=== PATIENT | female | born 1995 | race Caucasian/White ===

== ENCOUNTER → 2024-09-26 | Outpatient (CLI) | payer OTHER ==
--- NOTE | 2024-09-30 17:29 | HMCSR ---
APPROVED REPORT EXAM: Two-dimensional and M-mode echocardiogram with Doppler and color Doppler. INDICATION ICD: R07.9 Chest pain 2D Dimensions RVDd3.7 cmLVEF(%)66.5 (>50%)LVED Vol(simp.)76.1 mL IVSd0.7 (0.7-1.1cm)FS(%)36 %LVES Vol(simp.)30.3 mL LVDd4.1 (3.8-5.6cm)LA (2D)3.0 (1.6-4.0cm)LVEF(%, simp.)60 % PWd0.7 (0.7-1.1cm)Ao Root(2D)2.6 (2.0-3.7cm) IVSs1.0 cmLVOT diam1.9 (1.8-2.4cm) LVDs2.6 (2.5-4.0cm)IVC diam2.2 cm PWs1.1 cm M-Mode Dimensions EPSS0.4 cm LA (MM)3.4 (1.6-4.0cm) Ao Root(MM)2.6 (2.0-3.7cm) Aortic Valve AoV Vmax1.3 m/Demario Peak GR6.5 mmHgLVOT Vmax1.1 m/s AoV VTI0.2 mAo Mean GR3.8 mmHgLVOT VTI0.22 m NAVIN (VMAX)2.5 cm2AVA (VTI) 2.5 cm2 Mitral Valve MV E Vmax77.4 cm/sDECEL Time78 ms MV A Vmax67.7 cm/sP 1/2 T58 ms E/A ratio1.1MVA (PHT)3.8 cm2 TDI E/E' Medial7.0E/E' Lateral4.3 Medial E' Peak V11.00 cm/sLateral E' Peak V18.00 cm/s Pulmonary Valve PV Vmax0.9 m/s Tricuspid Valve TR Vmax2.0 m/sRAP (EST) 8 [id number] mmHg TR Peak GR15.7 mmHg Left Ventricle The left ventricle is normal size. There is normal LV segmental wall motion. There is normal left nilesh tricular wall thickness. LVEF is 60-65%. No left ventricle thrombus noted on this study. The left nilesh tricular diastolic function is normal. E/A flow is fused. Right Ventricle The right ventricle is normal size. The right ventricular systolic function is normal. Atria The left atrium size is normal. The right atrium size is normal. Aortic Valve Aortic valve appears bicuspid. No aortic regurgitation is present. There is no aortic valvular stenos is. Mitral Valve The mitral valve is normal in structure. There is no mitral valve regurgitation noted. There is no mi tral valve stenosis. Tricuspid Valve The tricuspid valve is normal in structure. There is trace of tricuspid valve regurgitation noted. Pulmonic Valve The pulmonary valve is normal in structure. There is no pulmonic valvular regurgitation. Great Vessels The aortic root is normal in size. IVC is borderline dilated and collapses >50% with inspiration. Pericardium There is no pericardial effusion. Other Information Quality : Adequate Conclusion LVEF is 60-65%.
== END | disposition home or self-care (01) ==
LOC: SHCH 09:09
PROVIDERS: ATTEND Internal Medicine Cardiovascular Disease
DX: R00.2 Palpitations (principal); R07.9 Chest pain, unspecified
CPT/HCPCS: 93306

== ENCOUNTER → 2025-04-08 | Outpatient (CLI) | payer OTHER ==
--- NOTE | 2025-04-09 08:00 | HMCIMG ---
EXAM: CR Cervical spine, 3 views. CLINICAL HISTORY: Radiculopathy, cervical region. Cervicalgia. COMPARISON: None provided. FINDINGS: Cervical alignment is within normal limits. Normal intervertebral disc spaces. Normal vertebral body heights. No acute fracture. Uncinate process hypertrophy of C5 and C6 vertebrae. Mild narrowing of the neural foramina at the C5-C6 level. The prevertebral soft tissues are within normal limits. The included lungs are clear. IMPRESSION: No acute bony changes. Mild degenerative changes in the cervical spine, most prominent at the C5-C6 level. /[place]
== END | disposition home or self-care (01) ==
LOC: RAH 15:05
PROVIDERS: ATTEND Physical Medicine & Rehabilitation
DX: M47.22 Other spondylosis with radiculopathy, cervical region (principal); M48.02 Spinal stenosis, cervical region; M99.01 Segmental and somatic dysfunction of cervical region; M54.2 Cervicalgia
CPT/HCPCS: 72050